=== PATIENT | male | born 1970 | race Caucasian/White ===

== ENCOUNTER 2020-09-18 14:45 | Emergency (ER) | payer MEDICAID ==
[~2020-09-18] VITALS: Ht 177.8 cm; Wt 76.0 kg
[2020-09-18 15:10] VITALS: BP 144/96
[2020-09-18] MEDS ORDERED: ACETAMINOPHEN 325MG TABLET PO ONE (16:00)
[2020-09-18] MEDS ORDERED: IBUP-2029 MT (18:28)
[2020-09-18] MEDS ORDERED: IBUPROFEN 600MG TABLET PO NR (19:00)
== END 2020-09-18 19:02 | disposition home or self-care (01) ==
LOC: ER 14:45
DX: S93.401A Sprain of unspecified ligament of right ankle, initial encounter (principal); M23.8X2 Other internal derangements of left knee; X58.XXXA Exposure to other specified factors, initial encounter; Y93.89 Activity, other specified; Y92.89 Other specified places as the place of occurrence of the external cause; R03.0 Elevated blood-pressure reading, without diagnosis of hypertension; R26.89 Other abnormalities of gait and mobility
CPT/HCPCS: 73562; 73610; 99284

== ENCOUNTER 2022-04-07 12:16 | Emergency (ER) | payer MEDICAID, OTHER ==
[~2022-04-07] VITALS: Ht 167.6 cm; Wt 77.0 kg
[~2022-04-07 12:16] MED LIST: IBUP-2029 MT
[2022-04-07 15:24] VITALS: BP 135/86
[2022-04-07] MEDS ORDERED: IBUPROFEN 600MG TABLET PO ONE (15:30)
[2022-04-07] MEDS ORDERED: LIDOCAINE HCL 1% 20ML VIAL (Pyxis) INJ INFIL ONE (17:30)
[2022-04-07] MEDS ORDERED: LIDOCAINE HCL 1% 10 MG/ML 10ML VIAL IJ NR (17:45)
== END 2022-04-07 23:50 | disposition home or self-care (01) ==
LOC: ER 12:16
DX: M25.471 Effusion, right ankle (principal); M25.561 Pain in right knee
CPT/HCPCS: 20610; 73562; 73610; 82945; 83615; 84157; 87070; 87205; 89050; 89060; 99285; J3490; Z7610